=== PATIENT | male | born 1955 | race Caucasian/White ===

== ENCOUNTER 2016-04-26 17:52 | Emergency (ER) | payer OTHER ==
[~2016-04-26] VITALS: Ht 170.2 cm; Wt 58.9 kg
[~2016-04-26 17:52] MED LIST: BREO ELLIPTA I1 EACH IH; DILAUDID2 MG PO; ENDOCET 5-3251 EACH PO; SPIRIVA RESPIMAT4 GM IH; Tylenol Extra Streng PO; ZANTAC150 MG PO
[2016-04-26 19:11] LABS: HEMATOCRIT 43.2 % (38.0-50.0); MCHC 36.1 G/DL (30.0-36.0); MCV 91.3 FL (86-99); MEAN PLAT.VOLUME 10.2 uM^3 (9.0-12.4); PLATELET COUNT 156 K/uL (156-360); RBC DIS.WIDTH-CV 12.3 % (11.8-14.6); RBC DIS.WIDTH-SD 39.9 % (39-53); RED BLOOD COUNT 4.73 M/uL (4.00-5.50); WHITE BLOOD COUNT 7.8 K/uL (4.1-10.2)
[2016-04-26] MEDS ORDERED: MYAMBUTOL400 MG PO (19:15)
[2016-04-26] MEDS ORDERED: CLARITHROMYCIN500 MG PO (19:16)
[2016-04-26] MEDS ORDERED: RIFAMPIN300 MG PO (19:16)
[2016-04-26] MEDS ORDERED: ANORO ELLIPTA1 EACH IH (19:17)
[2016-04-26 19:19] LABS: CHLORIDE 104 mEq/L (99-109); POTASSIUM 3.9 mEq/L (3.7-5.4); SODIUM 135 mEq/L (136-147)
[2016-04-26 19:21] LABS: GLUCOSE 107 mg/dL (70-99)
[2016-04-26 19:22] LABS: ANION GAP 12 MEQ/L (2-14)
[2016-04-26 19:23] LABS: TOTAL BILIRUBIN 1.3 mg/dL (0.0-1.0)
[2016-04-26 19:25] LABS: ALKALINE PHOSPHATASE 132 IU/L (3-129); GFR ESTIMATE (CALCULATED) > 59 mL/min/
[2016-04-26 19:26] LABS: UREA NITROGEN (BUN) 14 mg/dL (9-23)
[2016-04-26 19:53] LABS: INFLUENZA A VIRAL ANTIGEN NEGATIVE; INFLUENZA B VIRAL ANTIGEN NEGATIVE
[2016-04-26 23:51] VITALS: BP 111/73
== END 2016-04-26 23:52 | disposition home or self-care (01) ==
LOC: EME 17:52
PROVIDERS: Nurse Practitioner Family
DX: R50.9 Fever, unspecified (principal); A31.0 Pulmonary mycobacterial infection; J44.9 Chronic obstructive pulmonary disease, unspecified; F17.200 Nicotine dependence, unspecified, uncomplicated
CPT/HCPCS: 71020; 71260; 80053; 85027; 87502; 99281; 99284; J1885; J7030